=== PATIENT | female | born 1965 | race American Indian/Alaskan Native ===

== ENCOUNTER 2017-11-11 07:54 | Outpatient (CLI) | payer OTHER, BC | END 2017-11-11 07:55 | disposition home or self-care (01) | LOC: CARD 07:54 | PROVIDERS: ATTEND Orthopaedic Surgery Foot and Ankle Surgery | DX: Z01.818 Encounter for other preprocedural examination (principal); I51.7 Cardiomegaly; S46.011A Strain of muscle(s) and tendon(s) of the rotator cuff of right shoulder, initial encounter; F17.200 Nicotine dependence, unspecified, uncomplicated; X58.XXXA Exposure to other specified factors, initial encounter; Y93.89 Activity, other specified; Y92.89 Other specified places as the place of occurrence of the external cause; Y99.8 Other external cause status | CPT/HCPCS: 93005; 93010 ==

== ENCOUNTER 2018-12-30 09:24 | Emergency (ER) | payer BC, OTHER ==
[2018-12-30 09:35] VITALS: BP 130/84
[2018-12-30] MEDS ORDERED: TORADOL IM ONE (11:12)
[2018-12-30] MEDS ORDERED: TESSALON PERLES PO ONE (11:12)
--- NOTE | 2018-12-30 12:19 | Emergency Department Report ---
- General Chief Complaint: Upper Respiratory Infection Stated Complaint: CONGESTION/COUGHING/SWEATING Time Seen by Provider: 12/30/18 11:05 Source: patient Mode of arrival: Ambulatory Limitations: No Limitations - History of Present Illness Initial Comments: 53-year-old female female with past medical history of headaches as migraines presents to Hospital complaining of cough, congestion, and body aches 2 days. Several coworkers are also sick with similar symptoms. Cough is dry. She complains of chest pain associated with coughing. Positive fever of 101 reported. Patient denies shortness of breath, nausea, vomiting, diarrhea she did not receive a flu shot this season. She does have a primary care doctor. - Related Data Home Medications Medication Instructions Recorded Confirmed Last Taken cloNIDine [Catapres] 0.2 mg PO DAILY 04/18/16 04/18/16 04/17/16 Previous Rx's Medication Instructions Recorded Last Taken Type Amoxicillin [Amoxicillin TAB] 875 mg PO BID #20 tablet 05/24/16 Unknown Rx Ibuprofen [Motrin] 600 mg PO Q8H PRN #15 tablet 05/24/16 Unknown Rx Azithromycin [Zithromax Z-ITZ] 1 dose PO DAILY 5 Days tab 12/30/18 Unknown Rx Benzonatate [Tessalon Perles] 100 mg PO Q8HR PRN #20 capsule 12/30/18 Unknown Rx Ibuprofen [Motrin] 800 mg PO Q8HR PRN #30 tablet 12/30/18 Unknown Rx Allergies Allergy/AdvReac Type Severity Reaction Status Date / Time No Known Allergies Allergy Unverified 08/09/14 11:43 ED Review of Systems ROS: Stated complaint: CONGESTION/COUGHING/SWEATING Other details as noted in HPI Comment: All other systems reviewed and negative ED Past Medical Hx - Past Medical History Hx Congestive Heart Failure: No Hx Headaches / Migraines: Yes Hx Asthma: No - Surgical History Additional Surgical History: Tubal ligation right shoulder - Social History Smoking Status: Current Every Day Smoker - Medications Home Medications: Home Medications Medication Instructions Recorded Confirmed Last Taken Type cloNIDine [Catapres] 0.2 mg PO DAILY 04/18/16 04/18/16 04/17/16 History Amoxicillin [Amoxicillin TAB] 875 mg PO BID #20 tablet 05/24/16 Unknown Rx Ibuprofen [Motrin] 600 mg PO Q8H PRN #15 tablet 05/24/16 Unknown Rx Azithromycin [Zithromax Z-ITZ] 1 dose PO DAILY 5 Days tab 12/30/18 Unknown Rx Benzonatate [Tessalon Perles] 100 mg PO Q8HR PRN #20 capsule 12/30/18 Unknown Rx Ibuprofen [Motrin] 800 mg PO Q8HR PRN #30 tablet 12/30/18 Unknown Rx ED Physical Exam - General Limitations: No Limitations - Other Other exam information: General: No limitations, patient is alert in no acute distress Head exam: Atraumatic, normocephalic Eyes exam: Normal appearance ENT: Moist mucous membrane, normal oropharynx without exudate, notes no lymphadenopathy Neck exam: Normal inspection, full range of motion, no meningismus nontender Respiratory exam: Clear to auscultation bilateral, no wheezes, rales, crackles Cardiovascular: Normal rate and rhythm, normal heart sounds Abdomen: Soft, nondistended, and nontender, with normal bowel sounds, no rebound, or guarding Extremity: Full range of motion normal inspection no deformity Back: Normal Inspection, full range of motion, no tenderness Neurologic: Alert, oriented x3, cranial nerves intact, no motor or sensory deficit Psychiatric: normal affect, normal mood Skin: Warm, dry, intact ED Course Vital Signs 12/30/18 09:31 Temperature 97.7 F Pulse Rate 95 H Respiratory 18 Rate Blood Pressure 130/84 Blood Pressure 130/84 [Right] O2 Sat by Pulse 97 Oximetry ED Medical Decision Making - Radiology Data Radiology results: report reviewed FINAL REPORT EXAM: XR CHEST ROUTINE 2V HISTORY: cough, fever TECHNIQUE: Chest, two views PRIORS: None. FINDINGS: The heart size is normal. Mediastinal contours are normal. Pulmonary vasculature is not congested. The lungs are clear. There are no pleural effusion seen. There is no evidence of pneumothorax. IMPRESSION: There is no acute abnormality identified. - Medical Decision Making Flu negative Patient treated with Tessalon Perles and Toradol - Differential Diagnosis viral syndrome, bronchitis, pneumonia Critical Care Time: No Critical care attestation.: If time is entered above; I have spent that time in minutes in the direct care of this critically ill patient, excluding procedure time. ED Disposition Clinical Impression: Acute bronchitis, URI (upper respiratory infection) Disposition: - TO HOME OR SELFCARE Is pt being admited?: No Does the pt Need Aspirin: No Condition: Stable Instructions: Acute Bronchitis (ED) Additional Instructions: Take the medication as prescribed. Follow up with your doctor or the clinic/doctor provided. Return if symptoms worsen as indicated by your discharge instructions. You may also take Tylenol and Motrin as needed for pain or fever. Prescriptions: Azithromycin [Zithromax Z-ITZ] 1 dose PO DAILY 5 Days tab Benzonatate [Tessalon Perles] 100 mg PO Q8HR PRN #20 capsule PRN Reason: Cough Ibuprofen [Motrin] 800 mg PO Q8HR PRN #30 tablet PRN Reason: Pain, Moderate (4-6) Referrals: SEDRICK HEATON [Primary Care Provider] - 3-5 Days Forms: Work/School Release Form(ED) Time of Disposition: 12:47
--- NOTE | 2018-12-30 12:23 | XRay Report ---
FINAL REPORT EXAM: XR CHEST ROUTINE 2V HISTORY: cough, fever TECHNIQUE: Chest, two views PRIORS: None. FINDINGS: The heart size is normal. Mediastinal contours are normal. Pulmonary vasculature is not congested. The lungs are clear. There are no pleural effusion seen. There is no evidence of pneumothorax. IMPRESSION: There is no acute abnormality identified.
== END 2018-12-30 13:08 | disposition home or self-care (01) ==
LOC: ED 09:24
DX: J20.9 Acute bronchitis, unspecified (principal); J06.9 Acute upper respiratory infection, unspecified; G43.909 Migraine, unspecified, not intractable, without status migrainosus; F17.200 Nicotine dependence, unspecified, uncomplicated
CPT/HCPCS: 71046; 87400; 96372; 99284; J1885

== ENCOUNTER 2019-01-23 07:59 | Outpatient (CLI) | payer OTHER ==
--- NOTE | 2019-01-23 11:22 | Mammography Report ---
BONE DEXA:01/23/19 CLINICAL: Postmenopausal. No comparison. TECHNIQUE: Two site bone DEXA performed on an Hologic scanner. FINDINGS: The average BMD of the lumbar spine L1-L4 is 0.842g/cm squared with a T-score of -1.9 and a Z-score of -1.8. The average BMD of the left hip is 0.724g/cm squared with a T-score of -1.8 and a Z-score of -1.5. IMPRESSION: 1. WHO classification: Osteopenia with increased fracture risk based on lumbar spine measurements. 2. WHO classification: Osteopenia with increased fracture risk based on left hip measurements. 3. The FRAX 10 year fracture probability for a major osteoporotic fracture is 3.2%. 4. The FRAX 10 year fracture probability for hip fracture is 0.5%. Note: FRAX version 3.01. Fracture probability calculated for an untreated patient. Fracture probability may be lower if the patient has received treatment. RECOMMENDATION: Clinical correlation and routine screening. DEFINITIONS: BMD = Bone Mineral Density T-score = BMD related to mean peak bone mass of young adult (mean expressed in Standard Deviation) Z-score = Age matched BMD expressed in SD World Health Organization (WHO) Diagnostic Criteria Normal T-score > -1 SD Osteopenia T-score between -1 and -2.4 SD Osteoporosis T-score -2.5 SD or below NOTE: BMD is not the only risk factor for fracture; also consider factors such as the patient's age, risk of falling, previous osteoporotic fracture, family history of osteoporotic fractures, current smoker, and low body weight. All treatment decisions require clinical judgment and consideration of individual patient factors, including patient preferences, comorbidities, previous drug use and risk factors not captured in the FRAX model (e.g. frailty, falls, vitamin D deficiency, increased bone turnover, interval significant decline in BMD). Fracture probability is calculated for an untreated patient. Fracture probability may be lower if the patient has received treatment. Z-scores are not calculated if >80 years of age.
--- NOTE | 2019-01-23 13:26 | Mammography Report ---
BILATERAL DIGITAL SCREENING MAMMOGRAM with CAD: 01/23/19 07:59:00 CLINICAL: Routine screening. COMPARISON:02/04/16 FINDINGS: There are bilateral scattered fibroglandular densities. A partially circumscribed right focal asymmetry at 12:30 o'clock requires additional imaging.No architectural distortion or suspicious calcifications.The left breast is negative. IMPRESSION: Right asymmetry requiring further workup. BI-RADS CATEGORY: 0 -- Additional Imaging Evaluation Required RECOMMENDATION: Recall for right lateralmedial spot magnification MLO and CC views and right breast ultrasound if needed. ACR BI-RADS MAMMOGRAPHIC CODES: 0 = Needs additional imaging evaluation; 1 = Negative; 2 = Benign; 3 = Probably benign; 4 = Suspicious; 5 = Malignant; 6 = Known biopsy-proven malignancy COMMENT: 1. Dense breast tissue, i.e., adenosis, fibrocystic changes, etc., may obscure an underlying neoplasm. 2. Approximately 10% of cancers are not detected with mammography. 3. A negative mammography report should not delay biopsy if a clinically suspicious mass is present. COMMENT: Patient follow-up letters are generated via our [employer] application.
== END 2019-01-23 08:00 | disposition home or self-care (01) ==
LOC: MAMMO 07:59
PROVIDERS: ATTEND Family Medicine
DX: Z12.31 Encounter for screening mammogram for malignant neoplasm of breast (principal); Z13.820 Encounter for screening for osteoporosis; M85.88 Other specified disorders of bone density and structure, other site; Z78.0 Asymptomatic menopausal state
CPT/HCPCS: 77067; 77080

== ENCOUNTER 2020-09-22 10:13 | Emergency (ER) | payer OTHER ==
[2020-09-22 10:37] VITALS: BP 139/101
--- NOTE | 2020-09-22 11:07 | XRay Report ---
RIGHT WRIST 3 VIEWS INDICATION: wrist pain. COMPARISON: None. IMPRESSION: No acute osseous or soft tissue abnormality. No significant DJD. Signer Name: Nikhil Roper Jr, MD Signed: 09/22/2020 11:02 AM Workstation Name: [id number]
--- NOTE | 2020-09-22 11:18 | Emergency Department Report ---
ED Upper Extremity Inj HPI - General Chief Complaint: Extremity Problem,Nontraumatic Stated Complaint: SWELLING RT WRIST Time Seen by Provider: 09/22/20 10:37 Source: patient Mode of arrival: Ambulatory Limitations: No Limitations - History of Present Illness Initial Comments: This is a 55-year-old female nontoxic, well nourished in appearance, no acute signs of distress presents to the ED with c/o of right wrist pain with tingling sensation to 3rd, 4th and 5th finger. 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 Patient denies any trauma or injuries. Denies decreased ROM, joint swelling, redness, or abnormal gait. Denies any fever, chills, nausea, vomiting, headache, stiff neck, chest pain or shortness of breath. Patient denies any numbness or tingling. Denies any allergies. MD Complaint: Injury to:: right, wrist -: days(s) Other Extremity Injury: Wrist: Right Severity scale (0 -10): 8 Improves With: immobilization Worsens With: movement of extremity Associated Symptoms: denies other symptoms. denies: weakness, numbness, neck pain, suspects foreign body, nausea/vomiting, heard/felt popping sensat - Related Data Home Medications Medication Instructions Recorded Confirmed Last Taken cloNIDine [Catapres] 0.2 mg PO DAILY 04/18/16 04/18/16 04/17/16 Previous Rx's Medication Instructions Recorded Last Taken Type Amoxicillin [Amoxicillin TAB] 875 mg PO BID #20 tablet 05/24/16 Unknown Rx Ibuprofen [Motrin] 600 mg PO Q8H PRN #15 tablet 05/24/16 Unknown Rx Azithromycin [Zithromax Z-ITZ] 1 dose PO DAILY 5 Days tab 12/30/18 Unknown Rx Benzonatate [Tessalon Perles] 100 mg PO Q8HR PRN #20 capsule 12/30/18 Unknown Rx Ibuprofen [Motrin] 800 mg PO Q8HR PRN #30 tablet 12/30/18 Unknown Rx Naproxen 500 mg PO Q12H PRN #12 tablet 09/22/20 Unknown Rx Allergies Allergy/AdvReac Type Severity Reaction Status Date / Time No Known Allergies Allergy Unverified 08/09/14 11:43 ED Review of Systems ROS: Stated complaint: SWELLING RT WRIST Other details as noted in HPI Constitutional: denies: chills, fever Eyes: denies: eye pain, eye discharge, vision change ENT: denies: ear pain, throat pain Respiratory: denies: cough, shortness of breath, wheezing Cardiovascular: denies: chest pain, palpitations Endocrine: no symptoms reported Gastrointestinal: denies: abdominal pain, nausea, diarrhea Genitourinary: denies: urgency, dysuria, discharge Musculoskeletal: denies: back pain, joint swelling, arthralgia Skin: denies: rash, lesions Neurological: denies: headache, weakness, paresthesias Psychiatric: denies: anxiety, depression Hematological/Lymphatic: denies: easy bleeding, easy bruising ED Past Medical Hx - Past Medical History Previous Medical History?: No Hx Congestive Heart Failure: No Hx Headaches / Migraines: Yes Hx Asthma: No - Surgical History Past Surgical History?: No Additional Surgical History: Tubal ligation right shoulder - Social History Smoking Status: Current Every Day Smoker - Medications Home Medications: Home Medications Medication Instructions Recorded Confirmed Last Taken Type cloNIDine [Catapres] 0.2 mg PO DAILY 04/18/16 04/18/16 04/17/16 History Amoxicillin [Amoxicillin TAB] 875 mg PO BID #20 tablet 05/24/16 Unknown Rx Ibuprofen [Motrin] 600 mg PO Q8H PRN #15 tablet 05/24/16 Unknown Rx Azithromycin [Zithromax Z-ITZ] 1 dose PO DAILY 5 Days tab 12/30/18 Unknown Rx Benzonatate [Tessalon Perles] 100 mg PO Q8HR PRN #20 capsule 12/30/18 Unknown Rx Ibuprofen [Motrin] 800 mg PO Q8HR PRN #30 tablet 12/30/18 Unknown Rx Naproxen 500 mg PO Q12H PRN #12 tablet 09/22/20 Unknown Rx ED Physical Exam - General Limitations: No Limitations General appearance: alert, in no apparent distress - Head Head exam: Present: atraumatic, normocephalic - Eye Eye exam: Present: normal appearance - Neck Neck exam: Present: normal inspection, full ROM - Respiratory Respiratory exam: Absent: respiratory distress - Cardiovascular Cardiovascular Exam: Present: regular rate - Extremities Exam Extremities exam: Present: normal inspection, full ROM, tenderness, normal capillary refill. Absent: joint swelling - Expanded Upper Extremity Exam Right General: Present: normal inspection Shoulder Exam: Present: normal inspection, full ROM. Absent: tenderness, swelling Upper Arm exam: Present: normal inspection, full ROM. Absent: tenderness, swelling Elbow exam: Present: normal inspection, full ROM. Absent: tenderness, swelling, abrasion Forearm Wrist exam: Present: normal inspection, full ROM. Absent: tenderness, swelling, abrasion, laceration, ecchymosis, deformity, crepidus, dislocation, erythema, tenderness over anatomical snuff box, pain with axial thumb loading Hand Wrist exam: Present: full ROM, tenderness. Absent: swelling, abrasion, laceration, ecchymosis, deformity, crepidus, dislocation, erythema, amputation, nail avulsion, subungual hematoma Vascular: Present: normal capillary refill. Absent: vascular compromise (neurovascular intact) - Back Exam Back exam: Present: normal inspection, full ROM - Neurological Exam Neurological exam: Present: alert, oriented X3, normal gait - Psychiatric Psychiatric exam: Present: normal affect, normal mood - Skin Skin exam: Present: warm, dry, intact, normal color. Absent: rash - Other Other exam information: positive phalen test and tinel sign to right wrist ED Course Vital Signs 09/22/20 10:35 Temperature 98.1 F Pulse Rate 78 Respiratory 18 Rate Blood Pressure 139/101 O2 Sat by Pulse 100 Oximetry - Reevaluation(s) Reevaluation #1: 09/22/20 11:16 Patient is speaking in full sentences with no signs of distress noted. ED Medical Decision Making - Radiology Data Referring Physician: VANDA MALDONADO Patient Name: LATRICE SCOTT Date of : 1965 Sex: Female Report Date: 2020-09-22 Report Status: Finalized [address] [address] XRay Report Signed Patient: LATRICE SCOTT MR#: [id number] 58 : 1965 Acct:[id number] Age/Sex: 55 / F ADM Date: 09/22/20 Loc: ED Attending Dr: Ordering Physician: VANDA MALDONADO NP Date of Service: 09/22/20 Procedure(s): XR wrist 3+V RT Accession Number(s): [id number] cc: VANDA MALDONADO NP Fluoro Time In Minutes: RIGHT WRIST 3 VIEWS INDICATION: wrist pain. COMPARISON: None. IMPRES JUNITO: No acute osseous or soft tissue abnormality. No significant DJD. Signer Name: Nikhil Roper Jr, MD Signed: 09/22/2020 11:02 AM Workstation Name: [id number] Transcribed By: TTR Dictated By: NIKHIL ROPER JR, MD Electronically Authenticated By: NIKHIL ROPER JR, MD Signed Date/Time: 09/22/201101 DD/ 01 TD/TT: - Medical Decision Making This is a 55-year-old female that presents with right carpal tunnel syndrome and wrist strain. Patient is stable and was examined by me. Patient is notified of the xray results with no signs of distress noted. No joint effusion, no redness, no decreased ROM. Patient has a wrist immobilize from home. Patient was instructed to Follow-up with a orthopedic doctor in 3-5 days or if symptoms worsen and continue return to emergency room as soon as possible. At time of discharge, the patient does not seem toxic or ill in appearance. No acute signs of distress noted. Patient agrees to discharge treatment plan of care. No further questions noted by the patient. Critical care attestation.: If time is entered above; I have spent that time in minutes in the direct care of this critically ill patient, excluding procedure time. ED Disposition Clinical Impression: Right carpal tunnel syndrome Strain of right wrist Qualifiers: Encounter type: initial encounter Qualified Code(s): S66.911A - Strain of unspecified muscle, fascia and tendon at wrist and hand level, right hand, initial encounter Disposition: - TO HOME OR SELFCARE Is pt being admited?: No Does the pt Need Aspirin: No Condition: Stable Instructions: Preventing Carpal Tunnel Syndrome, RICE Therapy for Routine Care of Injuries, [id number] Additional Instructions: Follow-up with a orthopedic doctor in 3-5 days or if symptoms worsen and continue return to emergency room as soon as possible. Prescriptions: Naproxen 500 mg PO Q12H PRN #12 tablet PRN Reason: Pain , Severe (7-10) Referrals: PRIMARY CARE, [Referring] - 3-5 Days ELLY CHOE MD [Staff Physician] - 3-5 Days Forms: Work/School Release Form(ED)
== END 2020-09-22 13:10 | disposition home or self-care (01) ==
LOC: ED 10:13
DX: S66.911A Strain of unspecified muscle, fascia and tendon at wrist and hand level, right hand, initial encounter (principal); G56.01 Carpal tunnel syndrome, right upper limb; F17.200 Nicotine dependence, unspecified, uncomplicated; G43.909 Migraine, unspecified, not intractable, without status migrainosus; Z79.899 Other long term (current) drug therapy; Z98.51 Tubal ligation status; X58.XXXA Exposure to other specified factors, initial encounter; Y93.89 Activity, other specified; Y92.89 Other specified places as the place of occurrence of the external cause; Y99.8 Other external cause status
CPT/HCPCS: 99283

== ENCOUNTER 2022-02-23 09:35 | Emergency (ER) | payer OTHER ==
--- NOTE | 2022-02-23 11:16 | Emergency Department Report ---
ED Back Pain/Injury HPI - General Chief Complaint: Back Pain/Injury Stated Complaint: BACK PAIN Time Seen by Provider: 02/23/22 11:15 Source: patient Limitations: No Limitations - History of Present Illness Initial Comments: Patient is a 56-year-old female that comes to the emergency room with low back pain radiating down her leg. She has acute on chronic sciatica. She states that she just has not had the time to get in with her primary care doctor so she comes to the ER. There is no trauma, fall or other injury. She has no dysuria. No abdominal pain. No fever or chills. She is ambulatory to fast track in no acute distress. Vital Signs 02/23/22 09:46 Temperature 98.4 F Pulse Rate 84 Respiratory 17 Rate Blood Pressure 136/82 [Right] O2 Sat by Pulse 100 Oximetry - Related Data Home Medications Medication Instructions Recorded Confirmed Last Taken cloNIDine [Catapres] 0.2 mg PO DAILY 04/18/16 04/18/16 04/17/16 Previous Rx's Medication Instructions Recorded Last Taken Type Amoxicillin [Amoxicillin TAB] 875 mg PO BID #20 tablet 05/24/16 Unknown Rx Ibuprofen [Motrin] 600 mg PO Q8H PRN #15 tablet 05/24/16 Unknown Rx Azithromycin [Zithromax Z-ITZ] 1 dose PO DAILY 5 Days tab 12/30/18 Unknown Rx Benzonatate [Tessalon Perles] 100 mg PO Q8HR PRN #20 capsule 12/30/18 Unknown Rx Ibuprofen [Motrin] 800 mg PO Q8HR PRN #30 tablet 12/30/18 Unknown Rx Naproxen 500 mg PO Q12H PRN #12 tablet 09/22/20 Unknown Rx Allergies Allergy/AdvReac Type Severity Reaction Status Date / Time No Known Allergies Allergy Unverified 08/09/14 11:43 ED Review of Systems ROS: Stated complaint: BACK PAIN Other details as noted in HPI Comment: All other systems reviewed and negative ED Past Medical Hx - Past Medical History Previous Medical History?: Yes Hx Congestive Heart Failure: No Hx Headaches / Migraines: Yes Hx Asthma: No Additional medical history: Sciatica - Surgical History Past Surgical History?: Yes Additional Surgical History: Tubal ligation right shoulder - Family History Family history: no significant - Social History Smoking Status: Current Every Day Smoker Substance Use Type: None - Medications Home Medications: Home Medications Medication Instructions Recorded Confirmed Last Taken Type cloNIDine [Catapres] 0.2 mg PO DAILY 04/18/16 04/18/16 04/17/16 History Amoxicillin [Amoxicillin TAB] 875 mg PO BID #20 tablet 05/24/16 Unknown Rx Ibuprofen [Motrin] 600 mg PO Q8H PRN #15 tablet 05/24/16 Unknown Rx Azithromycin [Zithromax Z-ITZ] 1 dose PO DAILY 5 Days tab 12/30/18 Unknown Rx Benzonatate [Tessalon Perles] 100 mg PO Q8HR PRN #20 capsule 12/30/18 Unknown Rx Ibuprofen [Motrin] 800 mg PO Q8HR PRN #30 tablet 12/30/18 Unknown Rx Naproxen 500 mg PO Q12H PRN #12 tablet 09/22/20 Unknown Rx ED Physical Exam - General Limitations: No Limitations General appearance: alert, in no apparent distress - Head Head exam: Present: atraumatic, normocephalic - Eye Eye exam: Present: normal appearance - ENT ENT exam: Present: mucous membranes moist - Neck Neck exam: Present: normal inspection - Respiratory Respiratory exam: Present: normal lung sounds bilaterally. Absent: respiratory distress - Cardiovascular Cardiovascular Exam: Present: regular rate, normal rhythm. Absent: systolic mur mur, diastolic murmur, rubs, gallop - GI/Abdominal GI/Abdominal exam: Present: soft, normal bowel sounds - Extremities Exam Extremities exam: Present: normal inspection - Back Exam Back exam: Present: normal inspection - Neurological Exam Neurological exam: Present: alert, oriented X3 - Psychiatric Psychiatric exam: Present: normal affect, normal mood - Skin Skin exam: Present: warm, dry, intact, normal color. Absent: rash ED Course Vital Signs 02/23/22 09:46 Temperature 98.4 F Pulse Rate 84 Respiratory 17 Rate Blood Pressure 136/82 [Right] O2 Sat by Pulse 100 Oximetry ED Medical Decision Making - Medical Decision Making Vital Signs 02/23/22 09:46 Temperature 98.4 F Pulse Rate 84 Respiratory 17 Rate Blood Pressure 136/82 [Right] O2 Sat by Pulse 100 Oximetry Patient has been seen by provider and screened as a nonmedical emergency. She has elected to not proceed with her visit. She is being MSE to primary care. She verbalizes understanding. Ambulatory neuro intact on discharge - Differential Diagnosis Acute on chronic back pain Critical care attestation.: If time is entered above; I have spent that time in minutes in the direct care of this critically ill patient, excluding procedure time. ED Disposition Clinical Impression: Back pain Qualifiers: Back pain location: low back pain Chronicity: chronic Back pain laterality: unspecified Sciatica presence: with sciatica Disposition: 07 LEFT WITHOUT BEING SEEN Is pt being admited?: No Does the pt Need Aspirin: No Condition: Stable Additional Instructions: follow up with pcp Referrals: SEDRICK HEATON MD [Staff Physician] - 3-5 Days Time of Disposition: 11:51
[2022-02-23 12:53] VITALS: BP 130/80
== END 2022-02-23 13:04 | disposition home or self-care (01) ==
LOC: ED 09:35
DX: M54.9 Dorsalgia, unspecified (principal)
CPT/HCPCS: 99282